=== PATIENT | male | born 1950 | race Caucasian/White ===

== ENCOUNTER 2019-05-31 14:49 | Emergency (ER) | payer MEDICARE, OTHER ==
[2019-05-31 15:28] LABS: #Basophils 0.1 thou/uL (0.0-0.2); #Eosinphils 0.1 thou/uL (0.0-0.7); #Lymphocytes 1.8 thou/uL (1.20-3.40); #Monocytes 0.5 thou/uL (0.11-0.59); #Neutrophils 2.5 thou/uL (1.40-6.50); %Basophils 1.3 % (0.0-1.0); %Lymphocytes 35.6 % (21.0-51.0); %Neutrophils 51.1 % (42.0-75.0); Hemoglobin 15.2 g/dL (14.0-18.0); Mean Corpuscular HGB CONC 32.4 g/dL (32.0-36.0); Mean Corpuscular Hemoglobin 29.3 pg (27.0-31.0); Mean Corpuscular Volume 90.7 fL (78.0-98.0); Mean Platelet Volume 7.9 fL (7.4-10.4); Platelet Count 225 thou/uL (130-400); RBC Distribution Width 13.4 % (11.5-14.5); Red Blood Cell (RBC) Count 5.19 mill/uL (4.70-6.10)
[2019-05-31 15:39] LABS: Anion Gap 10 mmol/L (10-20); BUN (Urea Nitrogen) 16 mg/dL (8.4-25.7); Calc. Creatinine Clearance 0 mL/min (70-130); Calcium 8.9 mg/dL (7.8-10.44); Carbon Dioxide 25 mmol/L (23-31); Chloride 110 mmol/L (98-107); Estimated GFR-MDRD 81; Glucose 96 mg/dL (80-115); Potassium 3.9 mmol/L (3.5-5.1); Sodium 141 mmol/L (136-145)
== END 2019-05-31 16:50 | disposition home or self-care (01) ==
LOC: SCSER 14:49
DX: B34.9 Viral infection, unspecified (principal); R19.7 Diarrhea, unspecified; E78.5 Hyperlipidemia, unspecified; I10 Essential (primary) hypertension; Z87.891 Personal history of nicotine dependence
CPT/HCPCS: 36415; 80048; 85025; 93005

== ENCOUNTER 2019-08-07 03:29 | Emergency (ER) | payer MEDICARE, OTHER ==
[2019-08-07] MEDS ORDERED: Dexamethasone 10 MG/ML VIAL ONE (04:10)
== END 2019-08-07 04:35 | disposition home or self-care (01) ==
LOC: SCSER 03:29
DX: L50.9 Urticaria, unspecified (principal); I20.9 Angina pectoris, unspecified; I10 Essential (primary) hypertension; Z79.82 Long term (current) use of aspirin; Z79.899 Other long term (current) drug therapy
CPT/HCPCS: 96372; 99282; J1100

== ENCOUNTER 2022-10-03 09:50 | Outpatient (CLI) | payer OTHER ==
[2022-10-03 11:33] LABS: Prothrombin Time 10.6 sec (9.5-12.1)
== END 2022-10-03 09:51 | disposition home or self-care (01) ==
LOC: LABBT 09:50
PROVIDERS: ATTEND Orthopaedic Surgery
DX: Z01.812 Encounter for preprocedural laboratory examination (principal); M17.11 Unilateral primary osteoarthritis, right knee
CPT/HCPCS: 85610; 87081

== ENCOUNTER 2022-10-08 06:38 | Observation (INO) | payer OTHER ==
[2022-10-07 11:43] VITALS: BMI 33.3
[2022-10-08] MEDS ORDERED: Sodium Chloride 0.9% 100 ML ONE ×2 (07:21→09:08)
[2022-10-08] MEDS ORDERED: Tranexamic Acid 1,000 MG/10 ML VIAL ONE (07:21)
[2022-10-08] MEDS ORDERED: Vancomycin (BATCH) 1.5 GRAM/300 ML BAG ONE (07:21)
[2022-10-08] MEDS ORDERED: FENTANYL 50 MCG/ML 1 ML VIAL ONE ×4 (07:46→13:05)
[2022-10-08] MEDS ORDERED: Midazolam HCl 2 mg/2 ml Vial ONE (07:46)
[2022-10-08] MEDS ORDERED: Bupivacaine PF 0.5% 30 ML VIAL ONE (07:46)
[2022-10-08] MEDS ORDERED: EPINEPHrine 1 MG/ML AMP ONE (07:48)
[2022-10-08 08:01] LABS: SARS-CoV-2 NAA Rapid Test Not Detected (NotDetected)
[2022-10-08] MEDS ORDERED: CEFAZOLIN 2 GM VIAL ONE (09:08)
[2022-10-08] MEDS ORDERED: Dexamethasone 20 MG/5 ML VIAL ONE (09:25)
[2022-10-08] MEDS ORDERED: Ondansetron PF 4 MG/2 ML Vial ONE (09:25)
[2022-10-08] MEDS ORDERED: ePHEDrine 50 MG/ML VIAL ONE (09:25)
[2022-10-08] MEDS ORDERED: PROPOFOL 200 MG/20 ML VIAL ONE (09:25)
[2022-10-08] MEDS ORDERED: FENTANYL 50 MCG/ML 1 ML VIAL SLOW IVP PRN (09:39)
[2022-10-08] MEDS ORDERED: Ropivacaine 0.2% 550 ML 550 ML NERVE BLCK SCH (09:45)
[2022-10-08] MEDS ORDERED: Zolpidem Tartrate 5 MG TAB PO PRN (09:45)
[2022-10-08] MEDS ORDERED: traMADol HCl 50 MG TAB PO PRN ×2 (09:45)
[2022-10-08] MEDS ORDERED: Promethazine HCl 25 MG/ML VIAL IM PRN (09:45)
[2022-10-08] MEDS ORDERED: HYDROcodone/Acetaminophen 10/325 mg Tablet PO PRN ×2 (09:45)
[2022-10-08] MEDS ORDERED: Ondansetron PF 4 MG/2 ML Vial IVP PRN (09:45)
[2022-10-08] MEDS ORDERED: HYDROmorphone 2 MG/ML VIAL ONE (10:02)
[2022-10-08] MEDS ORDERED: Ketorolac Tromethamine 30 MG/ML VIAL ONE (11:58)
[2022-10-08] MEDS ORDERED: diphenhydrAMINE 25 MG CAP PO PRN (14:27)
[2022-10-08] MEDS ORDERED: Acetaminophen 325 MG TAB PO PRN (14:27)
[2022-10-08] MEDS: CEFAZOLIN 2 GM in Sodium Chloride 0.9% 100 ML IVPB SCH (18:01)
[2022-10-08] MEDS: Sodium Chloride 0.9% 1,000 ML IV SCH ×2 (18:02→22:33)
[2022-10-08] MEDS: Ketorolac Tromethamine 30 MG/ML VIAL IVP SCH ×3 (18:02→22:59)
[2022-10-08] MEDS ORDERED: Vancomycin 1.5 GRAM/300 ML BAG 1.5 GM in Premix Bag 1 BAG IVPB SCH (20:00)
[2022-10-08] MEDS: Senokot S 8.6-50 MG TAB PO SCH (21:00)
[2022-10-08] MEDS: Atorvastatin Calcium 20 MG TAB PO SCH ×2 (21:00)
[2022-10-08] MEDS: Aspirin 81 mg Enteric Coated Tablet PO SCH (21:00)
[2022-10-09] MEDS: Ketorolac Tromethamine 30 MG/ML VIAL IVP SCH ×2 (01:37→05:10)
[2022-10-09] MEDS: CEFAZOLIN 2 GM in Sodium Chloride 0.9% 100 ML IVPB SCH (01:37)
[2022-10-09 05:51] LABS: Hemoglobin 12.3 g/dL (14.0-18.0); Mean Corpuscular HGB CONC 31.4 g/dL (32.0-36.0); Mean Corpuscular Hemoglobin 29.4 pg (27.0-31.0); Mean Corpuscular Volume 93.5 fl (78.0-98.0); Platelet Count 202 10x3/uL (130-400); RBC Distribution Width 12.4 % (11.5-14.5); White Blood Cell (WBC) Count 8.9 10x3/uL (4.8-10.8)
[2022-10-09] MEDS ORDERED: Cholecalciferol 1,000 UNITS (25 MCG) TAB PO SCH (09:00)
[2022-10-09] MEDS ORDERED: Atorvastatin Calcium 20 MG TAB PO SCH (09:00)
[2022-10-09] MEDS ORDERED: Multivitamin W/ Minerals 1 TAB PO SCH (09:00)
[2022-10-09] MEDS ORDERED: Ferrous Gluconate 324 MG TAB PO SCH (09:00)
[2022-10-09] MEDS: Aspirin 81 mg Enteric Coated Tablet PO SCH (09:12)
[2022-10-09] MEDS: Senokot S 8.6-50 MG TAB PO SCH (09:13)
[2022-10-09 09:59] VITALS: BP 113/67; TEMP 98
[2022-10-10] MEDS ORDERED: Zinc Sulfate 220 MG CAP PO SCH (09:00)
[2022-10-11] MEDS ORDERED: Meloxicam 15 MG TAB PO SCH (09:00)
== END 2022-10-09 11:31 | disposition home or self-care (01) ==
LOC: SDC 06:38 → SJJU 15:47
PROVIDERS: ADMIT Orthopaedic Surgery; ATTEND Orthopaedic Surgery
PROC: 0SRC0J9 Replacement of Right Knee Joint with Synthetic Substitute, Cemented, Open Approach (ICD-10-PCS; principal; 2022-10-08)
DX: M17.11 Unilateral primary osteoarthritis, right knee (principal); Z79.1 Long term (current) use of non-steroidal anti-inflammatories (NSAID); Z79.82 Long term (current) use of aspirin; Z79.899 Other long term (current) drug therapy; Z88.8 Allergy status to other drugs, medicaments and biological substances; Z98.890 Other specified postprocedural states; Z20.822 Contact with and (suspected) exposure to COVID-19
CPT/HCPCS: 27447; 73560; 85027; 97110 ×2; 97116 ×2; 97530; A4306; C1713; C1776; J3010; J3370; U0002; 36415; J0171; J1100; J1170; J1885; J2250; J2405; J2704; J2795; J3490; J7050; S0020

== ENCOUNTER 2024-03-30 05:46 | Day surgery (SDC) | payer OTHER ==
[2024-03-29 08:48] VITALS: BMI 31.8
[~2024-03-30 05:46] MED LIST: EPINEPHrine 0.3 MG in Ophthalmic Irrigation Solution 500 ML IRR SCH
[2024-03-30] MEDS ORDERED: Cyclopentolate W/ Phenylephrin 40 DROP/2 ML BOT ONE (06:20)
[2024-03-30] MEDS ORDERED: Lidocaine 1% PF 5 ML VIAL ONE ×2 (06:54→07:43)
[2024-03-30] MEDS ORDERED: PROPOFOL 20 ML ONE (06:54)
[2024-03-30 07:01] LABS: Anion Gap 14 mmol/L (10-20); BUN (Urea Nitrogen) 19 mg/dL (8.4-25.7); Calc. Creatinine Clearance 107 mL/min (70-130); Carbon Dioxide 21 mmol/L (23-31); Chloride 109 mmol/L (98-107); Estimated GFR 90; Glucose 97 mg/dL (83-110); Potassium 4.3 mmol/L (3.5-5.1); Sodium 140 mmol/L (136-145)
[2024-03-30] MEDS ORDERED: Midazolam HCl 2 mg/2 ml Vial ONE (07:23)
[2024-03-30] MEDS ORDERED: Maxitrol 0.1% Opth Oint 3.5 GM TUBE ONE (07:43)
[2024-03-30] MEDS ORDERED: Triamcinolone 40 MG/ML VIAL ONE (07:43)
[2024-03-30] MEDS ORDERED: CEFAZOLIN 1 GM VIAL ONE (07:43)
[2024-03-30] MEDS ORDERED: Bupivacaine 0.75% 10 ML VIAL ONE (07:43)
[2024-03-30] MEDS ORDERED: Lidocaine 4% PF 5 ML AMP ONE (07:43)
== END 2024-03-30 08:46 | disposition home or self-care (01) ==
LOC: SDC 05:46
PROVIDERS: ATTEND Ophthalmology Retina Specialist
PROC: 08T53ZZ Resection of Left Vitreous, Percutaneous Approach (ICD-10-PCS; principal; 2024-03-30)
DX: H43.12 Vitreous hemorrhage, left eye (principal); H33.22 Serous retinal detachment, left eye
CPT/HCPCS: 67039; 80048; J0171; J2250; J2704; 93005; 93010; J0690; J3301; J3490

== ENCOUNTER 2024-10-12 07:13 | Day surgery (SDC) | payer OTHER ==
[2024-10-11 15:50] VITALS: BMI 32.5
[2024-10-12] MEDS ORDERED: PHENYLephrine 2.5% Ophth Soln 15 ml Bottle ONE (07:55)
[2024-10-12] MEDS ORDERED: Cyclopentolate 1% Opth Drop 2 ML BOT ONE (07:55)
[2024-10-12] MEDS ORDERED: fentaNYL 50 mcg/mL 1 mL Vial ONE (08:28)
[2024-10-12] MEDS ORDERED: PROPOFOL 20 ML ONE (08:28)
[2024-10-12] MEDS ORDERED: Triamcinolone 40 MG/ML VIAL ONE (09:12)
[2024-10-12] MEDS ORDERED: Indocyanine Green 25 MG/10 ML VIAL ONE (09:12)
[2024-10-12] MEDS ORDERED: Lidocaine 4% PF 5 ML AMP ONE (09:12)
[2024-10-12] MEDS ORDERED: CEFAZOLIN 1 GM VIAL ONE (09:12)
[2024-10-12] MEDS ORDERED: Lidocaine 1% PF 5 ML VIAL ONE (09:12)
[2024-10-12] MEDS ORDERED: Bupivacaine 0.75% 10 ML VIAL ONE (09:12)
== END 2024-10-12 10:50 | disposition home or self-care (01) ==
LOC: SDC 07:13
PROVIDERS: ATTEND Ophthalmology Retina Specialist
PROC: 08T53ZZ Resection of Left Vitreous, Percutaneous Approach (ICD-10-PCS; principal; 2024-10-12)
DX: H35.372 Puckering of macula, left eye (principal); Z88.8 Allergy status to other drugs, medicaments and biological substances
CPT/HCPCS: 67041; J0171; J2704; J3010